=== PATIENT | male | born 1965 | race Caucasian/White ===

== ENCOUNTER → 2016-11-20 | Outpatient (CLI) | payer BC ==
[~2016-11-20] VITALS: Ht 175.3 cm; Wt 69.9 kg
[~2016-11-20] MED LIST: ASPIRIN325 PO; CARISOPRODOL 3350 MG PO; CELEBREX 200 M200 MG PO; IBUPROFEN 200200 M1 PO; IBUPROFEN 800800 M1 PO; NORCO 7.5-3251 EACH PO; OMEPRAZOLE40 MG PO; TRAMADOL 50 MG50 MG PO; ZYRTEC PO; ZYRTEC10 M2 PO
--- NOTE | ~2016-11-20 | HPC ---
[facility] [place] [address] PAIN MANAGEMENT CONSULTATION Name: EMERSON PINEDA Room #: REG CL Hayley.#: [id number] Admission: 11/20/16 Attend Phys: Johny Barraza MD Discharge: Date of : 61 Report #: [id number] THIS REPORT FOR: //name// CC: Larry Barraza DATE OF SERVICE: 11/20/2016 Followup visit for chronic low back pain with radiculopathy. The patient returns to pain clinic today for the first time in almost a year. He has low back pain with radiculopathy, worse on the right than the left. He has borderline canal stenosis at L4-L5 resulting in narrowing in the lateral recess and he has neural foraminal narrowing, particularly at L4-L5 and L5-S1. These have responded very nicely over the years to epidural injections and he would like to avoid surgery. He says that his pain was well controlled for nearly 8 or 9 months, but over the course of the last month or two, the pain has gradually increased to a level 6-7/10, mostly in his low back, but radiates almost daily into his right buttock and leg. It is hard for him to stand. He went to ____ he had to walk a long distance and sit hard on a chair, it was really quite miserable for him. He is here today hopeful for another epidural injection. MEDICATIONS: None. ALLERGIES: None. PAST MEDICAL HISTORY: He has a C6-C7 anterior fusion. PHYSICAL EXAMINATION: He is bit hard of hearing, pleasant 51-year-old gentleman. Blood pressure is 106/75, heart rate ____, respirations 16. Moves from sitting to standing position, walks with antalgic gait. Straight leg raising is mildly positive on the right following an L4 distribution into the anterior lateral thigh. Sensation is intact. No focal weakness is noted. Deep tendon reflexes are diminished. IMPRESSION: Low back pain with radiculopathy secondary to lateral recess narrowing at L4-L5, neural foraminal narrowing. RECOMMENDATIONS: Bilateral transforaminal epidural injection under fluoroscopic guidance. This is the injection that we provided 1 year ago that provided nearly 9-10 months worth of pain relief. PROCEDURE: He was taken to fluoroscopic suite, placed prone, skin prepped with ChloraPrep. Skin anesthetized first on the left. Using triplanar fluoroscopic views, I advanced the needle into the L5-S1 neural foramen. Good position of [facility] [address] [place] [address] PAIN MANAGEMENT CONSULTATION Name: EMERSON PINEDA Room #: REG [facility]#: [id number] Admission: 11/20/16 Attend Phys: Johny Barraza MD Discharge: Date of : 61 Report #: [id number] the needle was confirmed by 1 mL of Omnipaque demonstrating an epidurogram as well as spread along the L5 nerve root. This was followed by 3 mL of 0.5% lidocaine mixed with 20 mg of triamcinolone. He tolerated the procedure well. The left needle was removed. C-arm was then moved to the right, his most painful side. Again, using the same technique, skin was prepped and anesthetized, and a 22-gauge needle advanced using triplanar fluoroscopic views into the right L5-S1 neural foramen. No blood or CSF was aspirated. 1 mL of Omnipaque once again demonstrated an excellent epidurogram as well as outlining the L5 nerve root. This was then followed by 3 mL of 0.5% lidocaine mixed with 60 mg of triamcinolone. He tolerated the procedure well, was observed for 45 minutes and discharged. Pain score was 0 at discharge. We will follow up back with him and see him as needed in the pain clinic. Hopefully, He will have a good long duration as he did before. By: 1630 10 Johny Barraza MD /nt
[2016-11-20 13:06] VITALS: BP 106/75
== END | disposition home or self-care (01) ==
LOC: PAIN 07:34
DX: M54.16 Radiculopathy, lumbar region (principal); M48.06 Spinal stenosis, lumbar region

== ENCOUNTER → 2018-01-11 | Outpatient (CLI) | payer BC ==
[~2018-01-11] VITALS: Ht 175.3 cm; Wt 70.9 kg
[~2018-01-11] MED LIST changes: +CEFDINIR300 MG PO; +CHANTIX1 EACH PO
--- NOTE | ~2018-01-11 | HPC ---
[facility] [place] [address] [place] [address] PAIN MANAGEMENT CONSULTATION Name: EMERSON PINEDA [facility] [id number] Admission: 01/11/18 Attend Phys: Johny Barraza MD Discharge: Date of : 61 Report #: [id number] THIS REPORT FOR: //name// CC: Larry Cruz DO Johny Barraza DATE OF SERVICE: 01/11/2018 Followup visit for chronic low back pain with radiculopathy. The patient returns to pain clinic today. Pain is radiating into both legs. I last saw him in 10/2016. Prior to that it was in 2015. He has had a single epidural injection per year for the last 2 years. We have found that the best approach for this is bilateral transforaminal epidural injection focusing mostly the medication on the right. Pain once again is on the right side, but also a bit on the left. It radiates down into leg in the dermatomal distribution consistent with L5-S1. He has had some increasing right foot numbness, but this has previously been helped by the epidural. He had asked about repeating an MRI. I am fine with that, but I think we should see if he gets another response from the epidural. If he gets a good response as he has before, I do not see a reason to get an MRI at this time. We would want to get an MRI closure to the time that we might consider additional therapies including back surgery. MEDICATIONS: Reviewed and reconciled with no blood thinning medications noted. He is on Chantix trying to quit smoking, omeprazole and ibuprofen. He is on Omnicef for sinus infection which developed last week, but is now nearly resolving. He is afebrile. IMPRESSION: Low back pain with radiculopathy, chronic L5-S1. Pain is bilateral. PROCEDURE: Bilateral L5-S1 transforaminal epidural injection under fluoroscopic guidance. PROCEDURE: He was taken to the fluoroscopic suite for procedure, placed prone, skin prepped with ChloraPrep. Skin anesthetized first on the left. A 22-gauge Tuohy epidural needle advanced into the neural foramen on the first attempt. There was no blood or CSF aspirated. 1 mL of Omnipaque was injected with good spread of dye observed into the epidural space, was followed by 3 mL of 0.5% lidocaine mixed with 20 mg of triamcinolone. Needle was then removed and the C-arm was repositioned to the right. Again, using triplanar fluoroscopic views, [facility] [address] [place] [address] PAIN MANAGEMENT CONSULTATION Name: EMERSON PINEDA [facility] [id number] Admission: 01/11/18 Attend Phys: Johny Barraza MD Discharge: Date of : 61 Report #: [id number] I advanced needle into the neural foramen on the right at L5-S1. There was no blood or CSF aspirated. After negative aspiration, I injected 1 mL of Omnipaque demonstrating epidurogram and spread along the L5 nerve root. I then injected another 3 mL of 0.5% lidocaine mixed with 60 mg of triamcinolone. He tolerated the procedure well and was observed for 45 minutes and discharged without pain. Followup as needed in the future. By: 1734 [id number] Johny Barraza MD /nt
[2018-01-11 14:44] VITALS: BP 131/87
== END | disposition home or self-care (01) ==
LOC: PAIN 07:19
DX: M54.16 Radiculopathy, lumbar region (principal); G89.29 Other chronic pain; F17.210 Nicotine dependence, cigarettes, uncomplicated; Z98.890 Other specified postprocedural states; Z79.899 Other long term (current) drug therapy

== ENCOUNTER → 2018-01-28 | Outpatient (CLI) | payer BC ==
[~2018-01-28] VITALS: Ht 175.3 cm; Wt 69.9 kg
--- NOTE | ~2018-01-28 | HPC ---
[facility] [place] [address] PAIN MANAGEMENT CONSULTATION Name: EMERSON PINEDA [facility] #: [facility] [id number] Admission: 01/28/18 Attend Phys: Johny Barraza MD Discharge: Date of : 61 Report #: [id number] THIS REPORT FOR: //name// CC: Larry Cruz DO Johny Barraza DATE OF SERVICE: 01/28/2018 CHIEF COMPLAINT: Followup visit for chronic cervicalgia with radiculopathy. HISTORY OF PRESENT ILLNESS: The patient returns to pain clinic today complaining mostly of his neck pain. I have seen him over the years to treat him for lumbar radiculopathy. He always responds well to epidural injections. Today, he is concerned about his neck. He has had 2-level anterior cervical diskectomy and fusion. Plates are in place. He has lately been noticing more and more pain in the back of his neck, particularly with neck extension and rotation. He says he feels some popping sensation. He describes his discomfort as a 5/10 intensity, sharp, cramping, numbing and aching. The low back pain is typical across the low back with radicular pain into both legs. We spent most of today discussing his cervical condition. I reviewed the MRI films myself. Because of artifact, it is hard to tell a lot about what is going on behind the fusion, but it is clear that there is some neural spinal stenosis at that level. Fortunately, by physical exam noted below, he does not appear to have much in the way of myelopathic features. I am concerned, however, by the appearance of the fusion on the MRI and I have actually ordered plain film x-rays of the cervical spine AP, lateral and oblique as well as flexion and extensive views to see if there is much motion or movement at the plates. PHYSICAL EXAMINATION: GENERAL: He is hard of hearing, but pleasant 52-year-old. He is outgoing and stoic. Appears to be in good shape and physically fit. VITAL SIGNS: His blood pressure is 140/82, heart rate is 70. HEAD AND NECK: Reveals pupils to be equal, round, reactive to light. EOMs are intact. Mucous membranes are moist. He is very hard of hearing. EXTREMITIES: Examination of the neck reveals pretty good range of motion, but he complains of a popping sensation with neck extension. I could not palpate this. Sensation is intact. Strength in the upper extremity is good. Biceps and triceps and brachioradialis reflexes are all 1-2+. Examination of reflexes in lower extremity is normal with no evidence of hyperreflexia to suggest cord compression above. IMPRESSION: Cervicalgia, status post anterior cervical diskectomy of [address] [address] PAIN MANAGEMENT CONSULTATION Name: EMERSON PINEDA Room #: REG CLI Sebastian#: [id number] Admission: 01/28/18 Attend Phys: Johny Barraza MD Discharge: Date of : 61 Report #: [id number] RECOMMENDATIONS: I have ordered x-rays of the cervical spine in neutral flexion and extension views. We will review these at followup visit. He might be a candidate for some facet injections or perhaps more successfully a cervical epidural injection, which allows us to provide cortisone within the canal over a broad level with a single injection. I would like to review his films before I make further decision on treatment. He does not like to take medications. None was ordered. I will see him back in the pain clinic in about a week after we get the plain film x-ray. By: 1655 0044 Johny Barraza MD /nt
[2018-01-28 09:37] VITALS: BP 116/83
== END | disposition home or self-care (01) ==
LOC: RAD 06:17 → PAIN 06:17
DX: M54.12 Radiculopathy, cervical region (principal); Z51.81 Encounter for therapeutic drug level monitoring; M54.16 Radiculopathy, lumbar region; M99.79 Connective tissue and disc stenosis of intervertebral foramina of abdomen and other regions; H91.90 Unspecified hearing loss, unspecified ear; F17.210 Nicotine dependence, cigarettes, uncomplicated; Z98.1 Arthrodesis status; Z98.890 Other specified postprocedural states; Z79.899 Other long term (current) drug therapy

== ENCOUNTER → 2018-06-03 | Outpatient (CLI) | payer BC ==
[~2018-06-03] VITALS: Ht 175.3 cm; Wt 74.1 kg
[~2018-06-03] MED LIST changes: +CELEBREX 200 M200 M1 PO; +CHANTIX1 MG PO
--- NOTE | ~2018-06-03 | HPC ---
[facility] [place] [address] PAIN MANAGEMENT CONSULTATION Name: EMERSON PINEDA [facility] #[facility] [id number] Admission: 06/03/18 ������������������ Attend Phys: Johny Barraza MD Discharge: ������������������ Date of : 61 Report #: [id number] THIS REPORT FOR: //name// CC: Larry Barraza DATE OF SERVICE: 06/03/2018 Followup visit for chronic cervicalgia with radiculopathy, chronic low back pain with radiculopathy. The patient is here today in followup for pain in both his neck and his low back. 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 He asked me today if I would be willing to fill out [place] papers. It is harder and harder for him to get through his work. He would like to continue working, but there are days when he just feels that he cannot continue. In order to give him the opportunity to continue to work, but have some opportunity to rest when these occasions occur, papers were filled out for him. He has always had good results from injections provided. I provided him with both cervical epidural injections and transforaminal injections bilaterally. It has been the bilateral transforaminal injections that provided the most relief. His last injection was in 12/2017. He is here today hopeful for additional injection. PHYSICAL EXAMINATION: Hard of hearing, pleasant, wiry gentleman. Blood pressure is 117/77, heart rate 65, respirations are 16. He is able to move independently from sitting to standing position and ambulate without too much difficulty. His gait is stable. Examination of the neck reveals a scar from previous surgery. He has pain with forward flexion, extension and rotation. There is a mild crepitus palpable with these movements. Examination of the low back reveals tenderness across the lumbosacral segment. There is pain with flexion, extension and rotation. Straight leg raising is noted bilaterally. Sensation is diminished slightly with numbness, complained of L5-S1 distribution. Strength is adequate. IMPRESSION: 1. Chronic cervicalgia with radiculopathy status post ACDF 2 levels. 2. Chronic low back pain with radiculopathy. Pain follows in L5-S1 distribution with numbness as well. MRI shows borderline canal at L4-L5 and foraminal narrowing, particularly at L4-L5 and L5-S1. [address] [address] PAIN MANAGEMENT CONSULTATION Name: EMERSON PINEDA Room #: REG [facility]#: [id number] Admission: 06/03/18 ������������������ Attend Phys: Johny Barraza MD Discharge: ������������������ Date of : 61 Report #: [id number] RECOMMENDATIONS: Repeat bilateral L5-S1 transforaminal epidural injection under fluoroscopic guidance. PROCEDURE: He was taken to the fluoroscopic suite for the procedure, placed prone, skin prepped with ChloraPrep. Skin anesthetized first on the left. A 22-gauge 4-1/2 inch Tuohy epidural needle was advanced under triplanar fluoroscopic views into the neural foramen. 1 mL of Omnipaque injected with excellent spread of dye observed along the nerve root and into the epidural space. This was then followed by 3 mL of 0.5% lidocaine mixed with 40 mg of triamcinolone. The needle was removed. C-arm was moved to the opposite side. A mirror image injection was performed on the right. He tolerated two injections well. There were no complications. Complains of some mild numbness in the extremities, was discharged with a pain score reduction of about 50%. Followup visit planned as needed. ��������������������������������������������� ���������������������������������������� By: ��������������������������������������������� 1728 1020 Johny Barraza MD /nt
[2018-06-03 14:31] VITALS: BP 117/77
--- NOTE | 2018-06-03 14:56 | NUR ---
Pain Clinic Assessment: 1. History of Osteoarthritis: * BACK NECK SHOULDERS HANDS FINGERS KNEES History of Rheumatoid Arthritis: NO 2. Height: 5 ft. 9 in. 175.3 cm. Weight: 163.4 lb. oz. 74.118 kg. Patient's BMI: 24.1 3. Vital Signs: BP: 117/77 Pulse: 65 Resp: 16 Temp: 02 Sat: 98 ECG Mon: 4. Pain Intensity: 3 5. Fall Risk: Dizziness: Y Needs help standing or walking: N Fallen in the last 3 months: N Fall risk comments: 6. Patient on Blood Thinner: None 7. History of Hypertension: N 8. Opioid Therapy greater than 6 weeks: N Opiate Contract Signed: 9. Risk Assessment Tool Provided: MOD RISK-7 10. Functional Assessment Tool: 11. Recreational Drug Use: Never Drug Type: Tobacco Use: Former Smoker Tobacco Type: Cigarettes Amount or Packs/day: How Many Years: Alcohol Use: No Frequency: Quant:
== END | disposition home or self-care (01) ==
LOC: PAIN 07:02
DX: M54.16 Radiculopathy, lumbar region (principal); M54.12 Radiculopathy, cervical region; G89.29 Other chronic pain; M19.90 Unspecified osteoarthritis, unspecified site; Z98.890 Other specified postprocedural states; Z87.891 Personal history of nicotine dependence; Z79.899 Other long term (current) drug therapy

== ENCOUNTER → 2018-07-08 | Outpatient (CLI) | payer BC ==
[~2018-07-08] VITALS: Ht 175.3 cm; Wt 71.1 kg
--- NOTE | ~2018-07-08 | HPC ---
[facility] [place] [address] PAIN MANAGEMENT CONSULTATION Name: EMERSON PINEDA Room #: REG [facility].#: [id number] Admission: 07/08/18 ������������������ Attend Phys: Johny Barraza MD Discharge: ������������������ Date of : 61 Report #: [id number] THIS REPORT FOR: //name// CC: Larry Cruz DO Johny Barraza DATE OF SERVICE: 07/08/2018 Followup visit for cervical radiculopathy. When I first saw the patient in 2007, he complained of cervical radiculopathy. He had previous anterior cervical diskectomy with replacement and was complaining of pain radiating to his arm. He did well with injections at that time. Since that time, I have not provided him with epidural injections in the neck, but in the back. Today, however, complains that his pain is increasing in his neck and his arms. He would like an injection. He complains of osteoarthritis of multiple joints. He remains active. PHYSICAL EXAMINATION: He is 5 feet 9 inches, 156 pounds. His BMI is 23. Cervical range of motion is good. He has some pain and increased radiating pain into his shoulders and upper arm with rotational movements. Extension is performed with mild increased radicular symptoms. 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 Sensation to pinprick and light touch is intact. Deep tendon reflexes are trace, biceps, triceps and brachioradialis with no asymmetry. MRI scan performed in 12/2017 shows that there is probable central spinal canal narrowing at C5 through C7 and a mild posterior bulging of the intervertebral disk at C3-C4. Artifacts are noted at the area of the previous fusion. IMPRESSION: Cervical radiculopathy. RECOMMENDATIONS: Cervical epidural injection C7-T1 under fluoroscopic guidance. He was taken to fluoroscopic suite, placed prone, skin prepped with ChloraPrep. Skin was anesthetized over the C7-T1 interspace. A 20-gauge Tuohy epidural needle advanced first attempt in the epidural space with loss of resistance technique. There was no blood or CSF aspirated. 1 mL of Omnipaque was injected. Good spread of dye observed in the epidural space, followed by 3 mL of 0.5% lidocaine mixed with 80 mg triamcinolone. He tolerated the procedure well and was observed for 45 minutes and discharged. Follow up as needed. ��������������������������������������������� ���������������������������������������� By: ��������������������������������������������� 1741 1245 Johny Barraza MD /nt
[2018-07-08 14:06] VITALS: BP 113/68
--- NOTE | 2018-07-08 14:17 | NUR ---
Pain Clinic Assessment: 1. History of Osteoarthritis: * BACK NECK SHOULDERS HANDS FINGERS KNEES History of Rheumatoid Arthritis: NO 2. Height: 5 ft. 9 in. 175.3 cm. Weight: 156.8 lb. oz. 71.124 kg. Patient's BMI: 23.1 3. Vital Signs: BP: 113/68 Pulse: 71 Resp: 16 Temp: 02 Sat: 97 ECG Mon: 4. Pain Intensity: 6-AVG 5. Fall Risk: Dizziness: N Needs help standing or walking: N Fallen in the last 3 months: N Fall risk comments: 6. Patient on Blood Thinner: None 7. History of Hypertension: N 8. Opioid Therapy greater than 6 weeks: N Opiate Contract Signed: 9. Risk Assessment Tool Provided: MOD RISK-7 10. Functional Assessment Tool: 11. Recreational Drug Use: Never Drug Type: Tobacco Use: Former Smoker Tobacco Type: Amount or Packs/day: How Many Years: Alcohol Use: No Frequency: Quant:
== END | disposition home or self-care (01) ==
LOC: PAIN 06:53
DX: M54.12 Radiculopathy, cervical region (principal); G89.29 Other chronic pain; M19.90 Unspecified osteoarthritis, unspecified site; Z87.891 Personal history of nicotine dependence; Z98.890 Other specified postprocedural states; Z79.899 Other long term (current) drug therapy

== ENCOUNTER → 2018-11-18 | Outpatient (CLI) | payer BC ==
[~2018-11-18] VITALS: Ht 175.3 cm; Wt 68.1 kg
--- NOTE | ~2018-11-18 | HPC ---
[facility] [place] [place] [address] PAIN MANAGEMENT CONSULTATION Name: EMERSON PINEDA [facility] [id number] Admission: 11/18/18 Attend Phys: Johny Barraza MD Discharge: Date of : 61 Report #: [id number] THIS REPORT FOR: //name// CC: Larry Cruz DO Johny Barraza DATE OF SERVICE: 11/18/2018 Followup visit for chronic low back pain with radiculopathy, chronic cervicalgia with cervical radiculopathy. The patient returns to pain clinic today in followup for his chronic low back pain. I treat both his neck and his low back. 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 This involves lifting and occasionally he throws his back out. He needs to take a little bit of time off, but does not want to quit work. I support his ability to continue to work at his maximum level and I have signed a family medical leave act so that his employer may understand that at times he may need a little bit of a break away from his work in order to allow his condition to stabilize. He has favorably responded to both cervical and lumbar epidural injections. Today, he complains of pain mostly in his back that radiates down into both legs. He scores it as a 6-7/10. PHYSICAL EXAMINATION: GENERAL: He is an extremely hard of hearing gentleman, but very outgoing and pleasant. VITAL SIGNS: His blood pressure is 133/80, heart rate 77, respirations 14. He is 5 feet 9 inches, 150 pounds with a BMI of 22.2. He moves from an independent standing position, ambulates with antalgic features. CHEST: Clear to auscultation. CARDIAC: Rhythm is regular. SPINE: Demonstrates tenderness across the lumbosacral segment and there is a positive straight leg raising bilaterally, radiating pain into both legs. IMPRESSION: Bilateral lumbar radiculopathy. He has lateral recess and neural foraminal narrowing, particularly at L4-L5 and L5-S1. He has some pain that also radiates into the abdomen at times. We decided to perform an epidural injection at L3-L4 today. There is moderate facet degenerative change there as well. PROCEDURE: Epidural steroid injection. He was taken to fluoroscopic suite, [address] [address] PAIN MANAGEMENT CONSULTATION Name: EDWINEMERSON Jasmine [facility] [id number] Admission: 11/18/18 Attend Phys: Johny Barraza MD Discharge: Date of : 61 Report #: [id number] placed prone, skin prepped with ChloraPrep. Skin anesthetized over the L3-L4 interspace. A 20-gauge Tuohy epidural needle was advanced into the epidural space using loss of resistance technique. There was no blood or CSF aspirated. A 1 mL of Omnipaque injected. Good spread of dye observed. It was followed by 3 mL of 0.5% lidocaine and 10 mg of dexamethasone. Needle was removed and he tolerated the procedure well. There were no complications. Pain score reduced to 1-2 in recovery room and discharged. Followup visit planned as needed. No medications ordered for the patient. By: 1815 0105 Johny Barraza MD /nt
[2018-11-18 14:14] VITALS: BP 133/80
--- NOTE | 2018-11-18 14:35 | NUR ---
Pain Clinic Assessment: 1. History of Osteoarthritis: * BACK NECK SHOULDERS HANDS FINGERS KNEES History of Rheumatoid Arthritis: NO 2. Height: 5 ft. 9 in. 175.3 cm. Weight: 150.2 lb. oz. 68.130 kg. Patient's BMI: 22.2 3. Vital Signs: BP: 133/80 Pulse: 77 Resp: 14 Temp: 02 Sat: 100 ECG Mon: 4. Pain Intensity: 6-7 5. Fall Risk: Dizziness: N Needs help standing or walking: N Fallen in the last 3 months: N Fall risk comments: 6. Patient on Blood Thinner: None 7. History of Hypertension: N 8. Opioid Therapy greater than 6 weeks: N Opiate Contract Signed: 9. Risk Assessment Tool Provided: MOD RISK-7 10. Functional Assessment Tool: 11. Recreational Drug Use: Never Drug Type: Tobacco Use: Former Smoker Tobacco Type: Amount or Packs/day: How Many Years: Alcohol Use: No Frequency: Quant:
== END | disposition home or self-care (01) ==
LOC: PAIN 08:35
DX: M54.16 Radiculopathy, lumbar region (principal); M99.73 Connective tissue and disc stenosis of intervertebral foramina of lumbar region; G89.29 Other chronic pain; M54.12 Radiculopathy, cervical region; Z87.891 Personal history of nicotine dependence; Z79.899 Other long term (current) drug therapy

== ENCOUNTER → 2019-03-14 | Outpatient (CLI) | payer BC ==
[~2019-03-14] VITALS: Ht 175.3 cm; Wt 76.1 kg
[2019-03-14 14:22] VITALS: BP 111/78
--- NOTE | 2019-03-14 14:45 | NUR ---
Pain Clinic Assessment: 1. History of Osteoarthritis: BACK NECK SHOULDERS HANDS FINGERS KNEES History of Rheumatoid Arthritis: NO 2. Height: 5 ft. 9 in. 175.3 cm. Weight: 167.8 lb. oz. 76.114 kg. Patient's BMI: 24.8 3. Vital Signs: BP: 111/78 Pulse: 64 Resp: 14 Temp: 02 Sat: 100 ECG Mon: 4. Pain Intensity: 8 5. Fall Risk: Dizziness: N Needs help standing or walking: N Fallen in the last 3 months: N Fall risk comments: 6. Patient on Blood Thinner: None 7. History of Hypertension: N 8. Opioid Therapy greater than 6 weeks: N Opiate Contract Signed: 9. Risk Assessment Tool Provided: MOD RISK-7 10. Functional Assessment Tool: 11. Recreational Drug Use: Never Drug Type: Tobacco Use: Former Smoker Tobacco Type: Amount or Packs/day: How Many Years: Alcohol Use: No Frequency: Quant:
--- NOTE | 2019-03-21 12:21 | HPC ---
[facility] [place] [address] PAIN MANAGEMENT CONSULTATION Name: EMERSON PINEDA [id number] Admission: 03/14/19 Attend Phys: Johny Barraza MD Discharge: Date of : 61 Report #: [id number] THIS REPORT FOR: //name// CC: Larry Barraza DATE OF SERVICE: 03/14/2019 Followup visit for chronic low back pain with lumbar radiculopathy, right L5-S1 distribution. The patient is a longstanding patient who has responded favorably in the past to epidural injections. He is here today because he has recurring and severe lumbar radicular pain, all on the right at this time. He has no left sided pain whatsoever. The pain is described as an 8/10 in intensity, severe, shooting pain. It radiates down into his leg and interferes with activities. He underwent surgery in December and has been off work. He has had limited activity as well as he has recovered from his operation. We talked about the importance of resuming his activities at least daily walking to help keep his low back pain under control. He has x-ray evidence of spinal stenosis. At L5-S1, there is bulging and narrowing that extends into the neural foramen. This has worsened since 2013. 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 He denies use of tobacco or alcohol or recreational drugs. His BMI is 24, blood pressure 111/78, heart rate 64, O2 sat 100, pain intensity 8. He is not a fall risk nor is he on blood thinners, nor treated for hypertension. He is not on opioids. He did complete an ORT opioid risk assessment tool and his score is 7. Functional assessment score is 36 showing decent coping with his chronic pain. PHYSICAL EXAMINATION: Hard of hearing. Vital signs are as noted. Moves independently. Gait is antalgic. Pain across the low back with flexion, extension, positive straight leg raising beginning in the hip radiating through the right leg into the foot and calf. It follows an L5-S1 distribution. Decreased sensation in the base of the foot. Focal weakness is noted. He has pain with plantar and dorsiflexion of the foot and some general weakness in dorsiflexion. IMPRESSION: Right lumbar radiculopathy involving the L5 nerve root as well as the S1 nerve root, lumbosacral distribution. RECOMMENDATION: Right L5-S1 transforaminal epidural injection. [facility] [address] [place] [address] PAIN MANAGEMENT CONSULTATION Name: EMERSON PINEDA Room #: REG [facility]#: [id number] Admission: 03/14/19 Attend Phys: Johny Barraza MD Discharge: Date of : 61 Report #: [id number] PROCEDURE: He was taken to fluoroscopic suite where he was placed prone, skin was prepped with ChloraPrep. Skin was anesthetized over the L5-S1 neural foramen. Using triplanar fluoroscopic views, I advanced the needle into the neural foramen. A 0.25 mL was injected of Omnipaque and it demonstrated spread along the L5 nerve root and into the epidural space extending cephalad and caudad. It was then followed by 3 mL of 0.5% lidocaine mixed with 80 mg of triamcinolone. He tolerated the procedure well and there were no complications. Pain was reduced in recovery room to 2. Follow up visit is scheduled in 1 month to 2 months. He will return for injections as needed. <ELECTRONICALLY SIGNED> By: Johny Barraza MD 03/21/19 1221 [id number] Johny Barraza MD /nt
== END | disposition home or self-care (01) ==
LOC: PAIN 06:53
DX: M54.16 Radiculopathy, lumbar region (principal); M19.90 Unspecified osteoarthritis, unspecified site; Z87.891 Personal history of nicotine dependence; Z79.899 Other long term (current) drug therapy

== ENCOUNTER → 2019-08-11 | Outpatient (CLI) | payer BC ==
[~2019-08-11] VITALS: Ht 175.3 cm; Wt 72.4 kg
--- NOTE | ~2019-08-11 | HPC ---
[facility] [place] [place] [address] PAIN MANAGEMENT CONSULTATION Name: EMERSON PINEDA Room #: REG [facility].#: [id number] Admission: 08/11/19 Attend Phys: Johny Barraza MD Discharge: Date of : 61 Report #: [id number] THIS REPORT FOR: cc: Larry Cruz Louis D. DO Morgan, Richard L. MD ~ CC: Larry Cardozo DATE OF SERVICE: 08/11/2019 Followup visit for lumbar radiculopathy, chronic. The patient is here today for repeat of his right L5-S1 transforaminal epidural injection. He has responded beautifully to these injections over the course of many years. He typically sees 3-6 months of pain relief. In 2019, he had 3 lumbar injections. This will be his second injection in 2020. Managing pain with injections is a goal for him. He has 3 more years of work that will allow him to retire with better group home benefits. His work is difficult and we discussed ways to mitigate some of the stress on his low back. Pain today is consistent with his previous complaints, intensity is 6-7. It is in his back, radiates through the right leg following an L5-S1 distribution. He also has other aches and pains including some lumbosacral spondylitic pain, discomfort in his shoulders, hands, fingers and knees from his hard work. He continues to smoke. We discussed the role of tobacco and chronic pain. He has kept his weight under good control and is fit. He is very hard of hearing and is finding it challenging in these days of masks to communicate well with others. We did talk about the importance of following with the COVID-19 restrictions. PHYSICAL EXAMINATION: GENERAL: 5 feet 9, 159 pounds, BMI 23.6, blood pressure 147/85, heart rate 70, respirations 18, O2 sat 98. Pain intensity 6/10. Gait is mildly antalgic. Positive straight leg raising on the right down the posterolateral aspect of his leg. IMPRESSION: Chronic right lumbar radiculopathy. PROCEDURE: L5-S1 transforaminal epidural injection. He was taken to fluoroscopic suite for treatment, placed prone, skin prepped with ChloraPrep. Skin anesthetized over the L5-S1 interspace. Using triplanar [facility] [address] [place] [address] PAIN MANAGEMENT CONSULTATION Name: EDWINEMERSON Jasmine Room #: REG [facility] Sebastian#: [id number] Admission: 08/11/19 Attend Phys: Johny Barraza MD Discharge: Date of : 61 Report #: [id number] fluoroscopic views, I advanced the needle into the neural foramen. A 1 mL of Omnipaque injected and good spread of dye was observed in the epidural space, was followed by 3 mL of 0.5% lidocaine mixed with 80 mg of triamcinolone. He tolerated the procedure well, observed for 45 minutes and discharged. Followup visit planned in the pain clinic on an as needed basis. No medications were ordered today. By: [id number] Johny Barraza MD /nt
[2019-08-11 13:21] VITALS: BP 147/85
--- NOTE | 2019-08-11 13:31 | NUR ---
Pain Clinic Assessment: 1. History of Osteoarthritis: BACK NECK SHOULDERS HANDS FINGERS KNEES History of Rheumatoid Arthritis: NO 2. Height: 5 ft. 9 in. 175.3 cm. Weight: 159.6 lb. oz. 72.394 kg. Patient's BMI: 23.6 3. Vital Signs: BP: 147/85 Pulse: 70 Resp: 18 Temp: 02 Sat: 98 ECG Mon: 4. Pain Intensity: 6 5. Fall Risk: Dizziness: N Needs help standing or walking: N Fallen in the last 3 months: N Fall risk comments: 6. Patient on Blood Thinner: None 7. History of Hypertension: N 8. Opioid Therapy greater than 6 weeks: N Opiate Contract Signed: 9. Risk Assessment Tool Provided: 0-LOW RISK 10. Functional Assessment Tool: 11. Recreational Drug Use: Never Drug Type: Tobacco Use: Current Every Day Smoker Tobacco Type: Cigarettes Amount or Packs/day: 5-8 DAY How Many Years: 35 Alcohol Use: No Frequency: Quant:
== END | disposition home or self-care (01) ==
LOC: PAIN 06:43
DX: M54.16 Radiculopathy, lumbar region (principal); G89.29 Other chronic pain; F17.210 Nicotine dependence, cigarettes, uncomplicated; Z98.890 Other specified postprocedural states; Z79.899 Other long term (current) drug therapy

== ENCOUNTER → 2019-09-16 | Outpatient (CLI) | payer BC ==
[~2019-09-16] VITALS: Ht 175.3 cm; Wt 68.8 kg
[2019-09-16 11:08] VITALS: BP 118/83
--- NOTE | 2019-09-16 11:27 | NUR ---
Pain Clinic Assessment: 1. History of Osteoarthritis: BACK NECK SHOULDERS HANDS FINGERS KNEES History of Rheumatoid Arthritis: NO 2. Height: 5 ft. 9 in. 175.3 cm. Weight: 151.6 lb. oz. 68.765 kg. Patient's BMI: 22.4 3. Vital Signs: BP: 118/83 Pulse: 65 Resp: 14 Temp: 02 Sat: 98 ECG Mon: 4. Pain Intensity: 4-5 5. Fall Risk: Dizziness: N Needs help standing or walking: N Fallen in the last 3 months: N Fall risk comments: 6. Patient on Blood Thinner: None 7. History of Hypertension: N 8. Opioid Therapy greater than 6 weeks: N Opiate Contract Signed: 9. Risk Assessment Tool Provided: 0-LOW RISK 10. Functional Assessment Tool: 11. Recreational Drug Use: Never Drug Type: Tobacco Use: Current Every Day Smoker Tobacco Type: Cigarettes Amount or Packs/day: 3/4 ppd How Many Years: 35 Alcohol Use: No Frequency: Quant:
--- NOTE | 2019-09-26 09:29 | HPC ---
[facility] [address] [place] [address] PAIN MANAGEMENT CONSULTATION Name: EMERSON PINEDA [id number] Admission: 09/16/19 Attend Phys: Johny Barraza MD Discharge: Date of : 61 Report #: [id number] THIS REPORT FOR: cc: Larry Cruz,Johny Figueredo MD ~ CC: Beulah Velazquez ANP Larry Barraza DATE OF SERVICE: 09/16/2019 Followup visit for low back pain, lumbar spondylosis and right lumbar radiculopathy. The patient has been a longstanding patient of our clinic. I have been treating him since about 2008 with intermittent epidural injections. They have been helpful. He is to have a more significant radicular component to his pain, but over the years, has changed somewhat and now he complains more of pain in the back that radiates into the buttock. Some consideration has been given to facet arthropathy with referred pain into the hip in addition to his radiculopathy. At this time, his back and his hip are more painful than anything. He saw Albertina Velazquez APRN, who considered radiofrequency an option about a year ago. Because he had responded well to his epidurals, we continued them over his last couple of visits, but recently they are not working. He had an injection a month ago and the pain relief is only about 10%. I reviewed the films. It was a transforaminal injection, and we had a good epidural spread. I think we need to try something different. I filled out his FMLA papers for him. 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 Today, his pain is a 4-5/10, but it can be higher than that after a day of work. He describes it as constant, sharp, tingling and aching. It is mostly in his right lower back and radiates into the right hip. When the pain is really severe, he has a radicular component down into the leg with burning, numbness and tingling. PHYSICAL EXAMINATION: VITALS: Blood pressure 118/83, heart rate 65, respirations 14, O2 sat 98. His BMI is 22.4. He is lean and muscular. He has pain with back extension and a bit with back flexion as well. Tenderness across the lumbosacral segment. Pain into the right hip with tenderness as well. IMPRESSION: Lumbar spondylosis with radiculopathy. [facility] [address] [place] [address] PAIN MANAGEMENT CONSULTATION Name: EMERSON PINEDA Room #: REG MARTHA Cortes#: [id number] Admission: 09/16/19 Attend Phys: Johny Barraza MD Discharge: Date of : 61 Report #: [id number] RECOMMENDATION: Diagnostic medial branch nerve blocks. I have elected to go ahead and inject the L2, L3 and L4 medial branch nerves as well as the L5 dorsal ramus. This will allow us to denervate the three of the lower facet joints, which looked most significantly involved. Potential benefits and risks as well as a long process leading to radiofrequency was discussed at some length with the patient. We will see what the first injections provide for us today. PROCEDURE: After informed consent, he was taken to the fluoroscopic suite for the diagnostic blocks. He was placed in the prone position. Skin prepped on the right. Skin was anesthetized and 25-gauge needles were then advanced into position on the L3, L4 and L5 transverse processes and also at the sacral ala. This corresponds to the L2, L3 and L4 medial branch nerves and the L5 dorsal ramus. At each level, after negative aspiration, I injected 1 mL of 0.5% bupivacaine and needles were removed. He tolerated the procedure well. At the time of dictation, he is in the recovery room, waiting. We will give him a log to keep track of his response over the next 4-6 hours. I have talked to him about the more robust the response and better his pain relief is, the more likely it is to respond to radiofrequency treatments. A second diagnostic injection will be performed a couple of weeks before we go forward with RFL. <ELECTRONICALLY SIGNED> By: Johny Barraza MD 09/26/19 0929 [id number] [id number] Johny Barraza MD /nt
== END | disposition home or self-care (01) ==
LOC: PAIN 06:55
PROVIDERS: ATTEND Anesthesiology Pain Medicine
DX: M54.5 Low back pain (principal); M47.816 Spondylosis without myelopathy or radiculopathy, lumbar region; G89.29 Other chronic pain; F17.210 Nicotine dependence, cigarettes, uncomplicated; Z98.890 Other specified postprocedural states; Z79.899 Other long term (current) drug therapy

== ENCOUNTER → 2019-09-29 | Outpatient (CLI) | payer BC ==
[~2019-09-29] VITALS: Ht 175.3 cm; Wt 68.5 kg
[2019-09-29 10:29] VITALS: BP 135/83
--- NOTE | 2019-09-29 10:35 | NUR ---
Pain Clinic Assessment: 1. History of Osteoarthritis: BACK NECK SHOULDERS HANDS FINGERS KNEES History of Rheumatoid Arthritis: DENIES 2. Height: 5 ft. 9 in. 175.3 cm. Weight: 151.0 lb. oz. 68.493 kg. Patient's BMI: 22.3 3. Vital Signs: BP: 135/83 Pulse: 74 Resp: 13 Temp: 02 Sat: 99 ECG Mon: 4. Pain Intensity: 8 5. Fall Risk: Dizziness: N Needs help standing or walking: N Fallen in the last 3 months: N Fall risk comments: 6. Patient on Blood Thinner: None 7. History of Hypertension: N 8. Opioid Therapy greater than 6 weeks: N Opiate Contract Signed: 9. Risk Assessment Tool Provided: 0-LOW RISK 10. Functional Assessment Tool: 11. Recreational Drug Use: Never Drug Type: Tobacco Use: Current Every Day Smoker Tobacco Type: Cigarettes Amount or Packs/day: 0.5 How Many Years: Alcohol Use: No Frequency: Quant:
--- NOTE | 2019-10-20 09:56 | HPC ---
[facility] [place] [address] [place] [address] PAIN MANAGEMENT CONSULTATION Name: EMERSON PINEDA [id number] Admission: 09/29/19 Attend Phys: Johny Barraza MD Discharge: Date of : 61 Report #: [id number] THIS REPORT FOR: cc: Larry Cruz,Johny Figueredo MD ~ CC: Larry Barraza DATE OF SERVICE: 09/29/2019 Followup visit for chronic low back pain, spondylosis and radiculopathy. The patient returns to pain clinic today in followup. I have given him multiple epidural injections over the years and last week, we started to see if his pain was generated from his lumbar facet joints. His pain was much more mechanical and consistent with spondylosis. He had his initial diagnostic nerve blocks with injections of the L2, L3 and L4 medial branch and the L5 dorsal ramus. He had a very good response, appropriate, typical for denervation of the facet joints. This would completely denervate L3-L4, L4-L5 and L5-S1 on the right. He returns today for the second in the diagnostic injections, but sometimes it happens, he also has a radicular component to his pain. Today, his radicular pain is worse on the left. He has had pain radiating down both legs in the past. We decided today we will proceed and continue on with the diagnostic injections and treatment of lumbar spondylitic component. Hopefully, this will provide substantial relief and further injections will be unnecessary. 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 Goal is to get him back to work safely. PHYSICAL EXAMINATION: VITAL SIGNS: Blood pressure is 122/86, heart rate is 75, respirations 18, O2 sat 98 on room air. MUSCULOSKELETAL: Tenderness across the low back, pain with back extension. Pain radiating into the left leg with straight leg raising today. IMPRESSION: Lumbar spondylosis with radiculopathy. PROCEDURE: Diagnostic medial branch nerve blocks at L2, L3, L4 and dorsal ramus, injection at L5 on the right under fluoroscopic guidance. Diagnostic injections with bupivacaine. After informed consent, he was taken to the fluoroscopic suite, placed prone, skin prepped with ChloraPrep. Skin anesthetized with bupivacaine at the [address] [address] PAIN MANAGEMENT CONSULTATION Name: EMERSON PINEDA Room #: REG CL Sebastian#: [id number] Admission: 09/29/19 Attend Phys: Johny Barraza MD Discharge: Date of : 61 Report #: [id number] level at all 4 levels. The 25-gauge needles were then advanced into position at the medial aspect of the transverse process of L3, L4 and L5 and at the sacral ala. A 25-gauge needle was aspirated with no blood and injected each with 0.5 mL of 0.5% bupivacaine. No steroidals were utilized. He tolerated the procedures well with some sensitivity, was taken to recovery room for observation at the time of dictation. There were no complications. Followup visit will be scheduled for radiofrequency ablation assuming another excellent test. During the 4-hour period for his first injections, he had nearly complete pain relief. Pain then returned later in the evening consistent with the local anesthetic effect. <ELECTRONICALLY SIGNED> By: Johny Barraza MD 10/20/19 0956 1138 1250 Johny Barraza MD /nt
== END | disposition home or self-care (01) ==
LOC: PAIN 09-26 06:54
PROVIDERS: ATTEND Anesthesiology Pain Medicine
DX: M47.816 Spondylosis without myelopathy or radiculopathy, lumbar region (principal); M54.16 Radiculopathy, lumbar region; G89.29 Other chronic pain; F17.210 Nicotine dependence, cigarettes, uncomplicated; Z98.890 Other specified postprocedural states

== ENCOUNTER → 2019-10-31 | Outpatient (CLI) | payer BC ==
[~2019-10-31] VITALS: Ht 175.3 cm; Wt 70.2 kg
--- NOTE | ~2019-10-31 | HPC ---
[facility] [place] [address] PAIN MANAGEMENT CONSULTATION Name: EMERSON PINEDA [id number] Admission: 10/31/19 Attend Phys: Johny Barraza MD Discharge: Date of : 61 Report #: [id number] THIS REPORT FOR: cc: Larry Cruz,Johny Figueredo MD ~ CC: Larry Cardozo DATE OF SERVICE: 10/31/2019 Followup visit for low back pain with spondylosis and radiculopathy. The patient presents to pain clinic today for radiofrequency ablation. He has had two diagnostic medial branch nerve block procedures involving the L2, L3 and L4 medial branch nerves and the L5 dorsal ramus. Those procedures have both been successful. His log showed that he has had complete pain relief for about 3 hours following the procedure and then gradual recurrence fairly typical of a favorable diagnostic injection with bupivacaine. The definitive procedure radiofrequency ablation of the above-mentioned nerves will be performed today. He has over the years had also pain radiating into the left leg with radiculopathy. This has become worse over the course of the last month. This has responded also to lumbar epidural injections as a different pain generator. I have used transforaminal approach to provide this relief with success. He would like to receive a lumbar epidural injection using a transforaminal approach on the left, but will have to wait. I cannot do this procedure on the same day. I do feel that he may get some benefit from the triamcinolone. We will use it at the conclusion of the radiofrequency ablation to decrease neuritis and so that might provide enough relief to extend our interval between injections. PHYSICAL EXAMINATION: GENERAL: Today, he is a pleasant, hard of hearing gentleman. He is wearing a mask due to COVID restrictions. MUSCULOSKELETAL: He moves independently from sitting to standing position. Continuous pain across his low back with tenderness. Pain in his back extension that radiates mostly across the low back, but to the right. There is lumbar radiculopathy on the left in the L4, L5, S1 distribution with straight leg raising. That pain actually is more intense today than the pain across his low back. IMPRESSION: 1. Lumbar spondylosis. [address] [address] PAIN MANAGEMENT CONSULTATION Name: EMERSON PINEDA Room #: REG CLJose Cortes#: [id number] Admission: 10/31/19 Attend Phys: Johny Barraza MD Discharge: Date of : 61 Report #: [id number] 2. Lumbar radiculopathy, left L4-L5, L5-S1. PROCEDURE: Completion of treatment for spondylosis on the right with medial branch radiofrequency ablation. DESCRIPTION OF PROCEDURE: After informed consent, the patient was placed prone, skin was prepped with ChloraPrep. Skin was anesthetized lateral and inferior to the targets for the L2, L3 and L4 medial branch nerves corresponding to the L3, L4 and L5 transverse process. A 20-gauge 10 mm active tip RFL needle was advanced into position along the medial aspect of the transverse process at junction of the superior articular process. Each of the first 3 needles was placed using the same radiographic views, AP and laterals were taken prior to beginning testing. Testing was excellent receiving sensory stimulation at 50 Hz at very low levels as noted on the documentation sheet. This was then followed by motor stimulation at 2 Hz without any stimulation whatsoever below the waistline. The probes were then removed. Each needle injected with 1 mL of 1% lidocaine and we waited 2-4 minutes before performing a radiofrequency ablation procedure at 80 degrees for 90 seconds. The probes were removed and I injected each needle with 1 mL of 0.5% bupivacaine mixed with 10 mg of triamcinolone. Simla were then removed. The patient was allowed to change position slightly and the C-arm was repositioned to an AP view. Skin was anesthetized medial and inferior to the sacral ala on the left. Two needles were then placed parallel to each other by approximately 2-3 mm at the tip of the sacral ala. Both needles were independently checked for stimulation and motor with excellent responses. I then once again injected 1% lidocaine 1 mL, waited 2 minutes and performed a dual lesion at L5 dorsal ramus for 90 seconds at 80 degrees centigrade. Those needles were also injected with 1 mL of 0.5% bupivacaine and 10 mg of triamcinolone at the conclusion before removing them. He tolerated the procedure well and there were no complications. He was taken to recovery room where he was observed for approximately 45 minutes to an hour. He was able to stand and ambulate out of the clinic without much discomfort from the local anesthetic effect and there was no weakness. A followup visit is planned in the next month or two for a possible lumbar epidural injection, transforaminal approach on the right for his radicular symptoms. By: [id number] Johny Barraza MD /catalino
[2019-10-31 10:00] VITALS: BP 110/81
--- NOTE | 2019-10-31 10:13 | NUR ---
Pain Clinic Assessment: 1. History of Osteoarthritis: BACK NECK SHOULDERS HANDS FINGERS KNEES History of Rheumatoid Arthritis: DENIES 2. Height: 5 ft. 9 in. 175.3 cm. Weight: 154.8 lb. oz. 70.217 kg. Patient's BMI: 22.8 3. Vital Signs: BP: 110/81 Pulse: 83 Resp: 14 Temp: 02 Sat: 97 ECG Mon: 4. Pain Intensity: 8 5. Fall Risk: Dizziness: N Needs help standing or walking: N Fallen in the last 3 months: N Fall risk comments: 6. Patient on Blood Thinner: None 7. History of Hypertension: N 8. Opioid Therapy greater than 6 weeks: N Opiate Contract Signed: 9. Risk Assessment Tool Provided: 0-LOW RISK 10. Functional Assessment Tool: 11. Recreational Drug Use: Never Drug Type: Tobacco Use: Current Every Day Smoker Tobacco Type: Cigarettes Amount or Packs/day: 0.1 How Many Years: 35 Alcohol Use: Yes Frequency: Special Occasions Quant:
== END | disposition home or self-care (01) ==
LOC: PAIN 06:44
PROVIDERS: ATTEND Anesthesiology Pain Medicine
DX: M47.26 Other spondylosis with radiculopathy, lumbar region (principal); G89.28 Other chronic postprocedural pain; M48.061 Spinal stenosis, lumbar region without neurogenic claudication; Z79.899 Other long term (current) drug therapy

== ENCOUNTER → 2019-11-14 | Outpatient (CLI) | payer BC ==
[~2019-11-14] VITALS: Ht 175.3 cm; Wt 70.8 kg
[2019-11-14 12:35] VITALS: BP 123/85
--- NOTE | 2019-11-14 12:41 | NUR ---
Pain Clinic Assessment: 1. History of Osteoarthritis: BACK NECK SHOULDERS HANDS FINGERS KNEES History of Rheumatoid Arthritis: DENIES 2. Height: 5 ft. 9 in. 175.3 cm. Weight: 156.0 lb. oz. 70.761 kg. Patient's BMI: 23.0 3. Vital Signs: BP: 123/85 Pulse: 69 Resp: 16 Temp: 02 Sat: 96 ECG Mon: 4. Pain Intensity: 5 5. Fall Risk: Dizziness: N Needs help standing or walking: N Fallen in the last 3 months: N Fall risk comments: 6. Patient on Blood Thinner: None 7. History of Hypertension: N 8. Opioid Therapy greater than 6 weeks: N Opiate Contract Signed: 9. Risk Assessment Tool Provided: 0-LOW RISK 10. Functional Assessment Tool: 11. Recreational Drug Use: Never Drug Type: Tobacco Use: Current Every Day Smoker Tobacco Type: Amount or Packs/day: How Many Years: Alcohol Use: Yes Frequency: Quant:
--- NOTE | 2019-11-17 11:44 | HPC ---
[facility] [place] [address] PAIN MANAGEMENT CONSULTATION Name: EMERSON PINEDA Room #: REG [facility].#: [id number] Admission: 11/14/19 Attend Phys: Johny Barraza MD Discharge: Date of : 61 Report #: [id number] THIS REPORT FOR: cc: Larry Cruz,Johny Figueredo MD ~ CC: Larry Barraza DATE OF SERVICE: 11/14/2019 Followup visit for lumbar spondylosis. The patient had an outstanding response to his right-sided radiofrequency, all pain gone on the right. He is here today with pain on the left and would like facet injections. We talked about perhaps scheduling for diagnostic injections and radiofrequency on the left in the future and he would like to consider that, but for today, he asked if we would just go ahead and inject the joints with triamcinolone, which has worked effectively, sometimes providing many months of pain relief. He has remained active throughout the summer. He is sleeping better since his last injections. PHYSICAL EXAMINATION: Pleasant, hard of hearing gentleman wearing a mask. I did sit 6 feet away from him and pulled my mask down far enough that he could see my lips as we spoke. Otherwise, he has his hearing aids and is able to communicate. He has tenderness across his lumbosacral segment on the left, but none on the right. Pain with forward flexion and extension and it is worse with back extension, mostly to the left. There is no radiculopathy today on the right. He does have some radicular symptoms on the left to follow the L4, L5 and S1 distribution with straight leg raising. IMPRESSION: Lumbar spondylosis with radiculopathy on the left. PROCEDURE: Lumbar facet injections, L2-L3, L3-L4, L4-L5 and L5-S1. DESCRIPTION OF PROCEDURE: After informed consent, he was taken to fluoroscopic suite. Skin was placed prone, skin prepped with ChloraPrep. Skin anesthetized over the above-mentioned joints with 1% lidocaine and a 27-gauge needle. I then used a 22-gauge 3-1/2 inch spinal needle and advanced gently into the posterior inferior recess of the joints. After negative aspiration, each joint was injected with 0.5 mL of 0.5% bupivacaine mixed with 10 mg of triamcinolone. He tolerated the procedure well and was observed for a short time and discharged. There were no complications. [address] [address] PAIN MANAGEMENT CONSULTATION Name: EMERSON PINEDA Room #: REG [facility] Sebastian#: [id number] Admission: 11/14/19 Attend Phys: Johny Barraza MD Discharge: Date of : 61 Report #: [id number] Followup visit planned as needed. <ELECTRONICALLY SIGNED> By: Johny Barraza MD 11/17/19 [id number] MD giselle Elizalde
== END ==
LOC: PAIN 06:57
PROVIDERS: ATTEND Anesthesiology Pain Medicine
DX: M47.816 Spondylosis without myelopathy or radiculopathy, lumbar region (principal); G89.29 Other chronic pain; F17.210 Nicotine dependence, cigarettes, uncomplicated; Z98.890 Other specified postprocedural states; Z79.899 Other long term (current) drug therapy

== ENCOUNTER → 2020-07-23 | Outpatient (CLI) | payer BC ==
[~2020-07-23] VITALS: Ht 175.3 cm; Wt 72.8 kg
[2020-07-23 14:08] VITALS: BP 139/76
--- NOTE | 2020-07-23 14:22 | NUR ---
Pain Clinic Assessment: 1. History of Osteoarthritis: BACK NECK SHOULDERS HANDS FINGERS KNEES History of Rheumatoid Arthritis: DENIES 2. Height: 5 ft. 9 in. 175.3 cm. Weight: 160.4 lb. oz. 72.757 kg. Patient's BMI: 23.7 3. Vital Signs: BP: 139/76 Pulse: 60 Resp: 14 Temp: 02 Sat: 99 ECG Mon: 4. Pain Intensity: 8 5. Fall Risk: Dizziness: N Needs help standing or walking: N Fallen in the last 3 months: N Fall risk comments: 6. Patient on Blood Thinner: None 7. History of Hypertension: N 8. Opioid Therapy greater than 6 weeks: N Opiate Contract Signed: 9. Risk Assessment Tool Provided: 0-LOW RISK 10. Functional Assessment Tool: 45/70 11. Recreational Drug Use: Never Drug Type: Tobacco Use: Current Every Day Smoker Tobacco Type: Cigarettes Amount or Packs/day: 10-15 CIGGS How Many Years: Alcohol Use: No Frequency: Quant:
== END ==
LOC: PAIN 12:50
PROVIDERS: ATTEND Anesthesiology Pain Medicine
DX: M47.26 Other spondylosis with radiculopathy, lumbar region (principal); Z88.8 Allergy status to other drugs, medicaments and biological substances; Z79.899 Other long term (current) drug therapy

== ENCOUNTER → 2020-07-30 | Outpatient (CLI) | payer BC ==
[~2020-07-30] VITALS: Ht 175.3 cm; Wt 70.8 kg
[2020-07-30 09:18] VITALS: BP 122/93
--- NOTE | 2020-07-30 09:23 | NUR ---
Pain Clinic Assessment: 1. History of Osteoarthritis: BACK NECK SHOULDERS HANDS FINGERS KNEES History of Rheumatoid Arthritis: DENIES 2. Height: 5 ft. 9 in. 175.3 cm. Weight: 156.0 lb. oz. 70.761 kg. Patient's BMI: 23.0 3. Vital Signs: BP: 122/93 Pulse: 80 Resp: 16 Temp: 02 Sat: 100 ECG Mon: 4. Pain Intensity: 7 5. Fall Risk: Dizziness: N Needs help standing or walking: N Fallen in the last 3 months: N Fall risk comments: 6. Patient on Blood Thinner: None 7. History of Hypertension: N 8. Opioid Therapy greater than 6 weeks: N Opiate Contract Signed: 9. Risk Assessment Tool Provided: 0-LOW RISK 10. Functional Assessment Tool: 11. Recreational Drug Use: Never Drug Type: Tobacco Use: Current Every Day Smoker Tobacco Type: Cigarettes Amount or Packs/day: 10-15 How Many Years: Alcohol Use: No Frequency: Quant:
== END | disposition home or self-care (01) ==
LOC: PAIN 07:18
PROVIDERS: ATTEND Anesthesiology Pain Medicine
DX: M47.22 Other spondylosis with radiculopathy, cervical region (principal); G89.29 Other chronic pain; M19.90 Unspecified osteoarthritis, unspecified site; F17.210 Nicotine dependence, cigarettes, uncomplicated; Z98.890 Other specified postprocedural states; Z79.899 Other long term (current) drug therapy